=== PATIENT | female | born 1955 | race Caucasian/White ===

== ENCOUNTER 2017-05-17 09:21 | Observation (INO) ==
--- OUTSIDE RECORDS SUMMARY | 2017-05-17 09:37 | External Medical Summary | Continuity of Care Document ---
:1955 Author Organization [facility] Care Team Providers Name Role Phone SMILEY TRAYLOR [facility] LIAISON Unavailable Unavailable Insurance Providers Payer Name Policy Number Subscriber Name Relationship [employer] [id number] Prema Bonilla 16 Self / Same As Patient Advance Directives Directive Response Recorded Date/Time Advanced Directives Yes 05/20/16 10:13am Type Durable Power of Loan Specialist 05/20/16 10:13am Type Living Will 05/20/16 10:13am Other travis bonilla dpoa 05/20/16 10:13am Problems Active Problems Medical Problem Onset Date Status Foot pain Unknown Acute Medications Current Home Medications Medication Dose Units Route Directions Days/Qty Instructions Start Date Losartan Potassium 50 Mg ORAL Daily 90 05/20/16 (Cozaar) 50 Mg Lovastatin 10 Mg 10 Mg ORAL Daily 30 05/20/16 Glyburide 5 Mg 5 Mg ORAL Daily 360 05/20/16 Aspirin 81 Mg 81 Mg ORAL Daily 05/20/16 Omeprazole 20 Mg 20 Mg ORAL Daily 90 05/20/16 Metoprolol Succinate 50 50 Mg ORAL Daily 90 05/20/16 Mg [place]-3 Fatty Acids 300 300 Mg ORAL Daily 05/20/16 Mg Cholecalciferol 1,000 Unit ORAL Daily 05/20/16 (Vitamin D3) 1,000 Unit Social History Social History Problem Response Recorded Date/Time Onset Date Status Occupation or Former Occupation homemaker 05/20/2016 10:16am Query Response Start Date Stop Date Smoking Status Never smoker Hospital Discharge Instructions No hospital discharge instructions. Plan of Care Discharge Date 05/20/16 3:40pm Prescriptions See Medication Section Functional Status No functional status results. Allergies, Adverse Reactions, Alerts Allergen Type Severity Reaction Status Last Updated Codeine Allergy Unknown Active 05/19/16 Immunizations No immunization records. Vital Signs Acute Vital Signs Vital Response Date/Time Temperature (Fahrenheit) 97.0 05/20/2016 2:28pm Pulse 70 bpm 05/20/2016 3:35pm Respirations 16 05/20/2016 3:35pm Height 5 ft 6 in Weight 238 lb Body Mass Index 38.0 kg/m^2 Results Laboratory Results Test Name Result Units Flags Reference Collection Result Comments Date/Time Date/Time White Blood 8.78 10^3uL 4.0-11.0 05/20/2016 05/20/2016 Count 10:36am 10:39am Red Blood Count 4.65 10^6uL 4.00-5.00 05/20/2016 05/20/2016 10:36am 10:39am Hemoglobin 13.1 g/dL 12.0-15.5 05/20/2016 05/20/2016 10:36am 10:39am Hematocrit 38.00 % 35.00-45.00 05/20/2016 05/20/2016 10:36am 10:39am Mean 82 FL 80-100 05/20/2016 05/20/2016 Corpuscular 10:36am 10:39am Volume Mean 28.2 PG 26.0-34.0 05/20/2016 05/20/2016 Corpuscular 10:36am 10:39am Hemoglobin Mean 34.5 g/dL 31.0-37.0 05/20/2016 05/20/2016 Corpuscular 10:36am 10:39am Hemoglobin Concent Red Cell 13.0 % 11.8-15.6 05/20/2016 05/20/2016 Distribution 10:36am 10:39am Width Platelet Count 218 10^3uL 150-450 05/20/2016 05/20/2016 10:36am 10:39am Mean Platelet 9.6 FL H 6.0-9.5 05/20/2016 05/20/2016 Volume 10:36am 10:39am Volume Urine <10mL 05/20/2016 05/20/2016 Centrifuged Unspun 10:36am 10:54am Urine RANDOM 05/20/2016 05/20/2016 Collection Type VOIDED 10:36am 10:54am Urine Color Yellow 05/20/2016 05/20/2016 10:36am 10:53am Urine Clarity Clear 05/20/2016 05/20/2016 10:36am 10:53am Urine pH 5.5 5.0 - 8.0 05/20/2016 05/20/2016 10:36am 10:53am Urine Specific >=1.030 1.005-1.030 05/20/2016 05/20/2016 [place] 10:36am 10:53am Urine Protein Negative 05/20/2016 05/20/2016 10:36am 10:53am Urine Glucose 3+ H Negative 05/20/2016 05/20/2016 (UA) 10:36am 10:53am Urine Blood Trace-intac H Negative 05/20/2016 05/20/2016 t 10:36am 10:53am Urine Ketones Trace H Negative 05/20/2016 05/20/2016 10:36am 10:53am Urine Nitrite Negative Negative 05/20/2016 05/20/2016 10:36am 10:53am Urine Bilirubin Negative Negative 05/20/2016 05/20/2016 10:36am 10:53am Urine 0.2 mg/dL 0.2-1.0 05/20/2016 05/20/2016 Urobilinogen 10:36am 10:53am Urine Leukocyte Negative Negative 05/20/2016 05/20/2016 Esterase 10:36am 10:53am Urine RBC 0-2 /HPF 05/20/2016 05/20/2016 10:36am 10:54am Urine 0-2 /HPF 05/20/2016 05/20/2016 Microscopic WBC 10:36am 10:54am Urine Bacteria Rare /HPF Negative 05/20/2016 05/20/2016 10:36am 10:54am Urine Squamous 20-50 /LPF 05/20/2016 05/20/2016 Epithelial 10:36am 10:54am Cells Urine Mucus Rare 05/20/2016 05/20/2016 10:36am 10:54am Procedures No known history of procedures. Encounters Encounter Location Arrival/Admit Date Discharge/Depart Date Attending Provider Departed [place] 05/20/16 9:57am 05/20/16 3:40pm MIHAI BAE [facility] Care
--- OUTSIDE RECORDS SUMMARY | 2017-05-17 09:37 | External Medical Summary | CCD ---
:1955 Author Name MANCILLAALESHA MCCANN Address [address] [place], [place] [id number] Care Team Providers Name Role Phone SMILEY TRAYLOR Attending Physician Unavailable Vital Signs Unknown or Not Available. Allergies Unknown or Not Available. Procedures Unknown or Not Available. History of Immunizations Unknown or Not Available. Problems Unknown or Not Available. Results Unknown or Not Available. Active Medications Unknown or Not Available. Medications Administered During Visit Unknown or Not Available. Encounters Encounter Diagnosis Diagnosis Code Start Date Encounter for screening [id number] 08/16/2016 mammogram for malignant neoplasm of breast Social History Smoking Status Code Start Date End Date Unknown if ever smoked [id number] Patient Decision Aids Unknown or Not Available. Discharge Instructions You were admitted to [facility] on 08/16/2016 09:17 with a principal diagnosis of Encntr screen mammogram for malignant neoplasm of breas You were discharged from [facility] on 08/16/2016 09:17 Should you have any questions prior to discharge, please contact a member of your healthcare team. If you have left the hospital and have any questions, please contact your primary care physician. Chief Complaint and Reason For Visit Chief Complaint Date of Onset MM BILAT SCREEN Function Status Unknown or Not Available. Plan of Care Unknown or Not Available. Referral/Transition of Care Unknown or Not Available.
--- OUTSIDE RECORDS SUMMARY | 2017-05-17 09:37 | External Medical Summary | CCD ---
:1955 Author Name ALESHA MANCILLA Address [address] [place], [place] [id number] Care Team Providers Name Role Phone MIHAI BAE Attending Physician Unavailable Vital Signs Unknown or Not Available. Allergies Unknown or Not Available. Procedures Unknown or Not Available. History of Immunizations Unknown or Not Available. Problems Unknown or Not Available. Results Unknown or Not Available. Active Medications Unknown or Not Available. Medications Administered During Visit Unknown or Not Available. Encounters Encounter Diagnosis Diagnosis Code Start Date Calcaneal spur, right foot [id number] 08/16/2016 Social History Smoking Status Code Start Date End Date Unknown if ever smoked [id number] Patient Decision Aids Unknown or Not Available. Discharge Instructions You were admitted to [facility]; [facility] on 08/16/2016 09:14 with a principal diagnosis of Calcaneal spur, right foot You were discharged from [facility]; [facility] Should you have any questions prior to discharge, please contact a member of your healthcare team. If you have left the hospital and have any questions, please contact your primary care physician. Chief Complaint and Reason For Visit Chief Complaint Date of Onset PT Function Status Unknown or Not Available. Plan of Care Unknown or Not Available. Referral/Transition of Care Unknown or Not Available.
--- OUTSIDE RECORDS SUMMARY | 2017-05-17 09:37 | External Medical Summary | CCD ---
:1955 Author Name ALESHA MANCILLA Address [address] [place], [place] [id number] Care Team Providers Name Role Phone KARTHIKEYAN FROST Attending Physician Unavailable Vital Signs Unknown or Not Available. Allergies Unknown or Not Available. Procedures Unknown or Not Available. History of Immunizations Unknown or Not Available. Problems Unknown or Not Available. Results BASIC METABOLIC - Collect Date/Time: 06/08/2016 16:16 Test Name Code Test Result Test Units Test Ref Range GLUCOSE 177 mg/dL L=70 H=110 BUN 19 mg/dL L=7 H=18 CREATININE 0.91 mg/dL L=0.60 H=1.30 AGE 61 YEARS GFR 62.4 SODIUM 139 mmol/L L=136 H=145 POTASSIUM 3.7 mmol/L L=3.5 H=5.1 CHLORIDE 103 mmol/L L=98 H=107 CO2 28 mmol/L L=21 H=32 CALCIUM 8.9 mg/dL L=8.5 H=10.1 C-REACTIVE PROTEIN - Collect Date/Time: 06/08/2016 16:16 Test Name Code Test Result Test Units Test Ref Range CRP 27 mg/L L=0 H=5 HGB A1C - Collect Date/Time: 06/08/2016 16:16 Test Name Code Test Result Test Units Test Ref Range HGB A1C 11.9 % L=4.5 H=6.2 eAG 295 mg/dL LIPASE - Collect Date/Time: 06/08/2016 16:16 Test Name Code Test Result Test Units Test Ref Range LIPASE 100 U/L L=73 H=393 CBC W/ DIFF - Collect Date/Time: 06/08/2016 16:16 Test Name Code Test Result Test Units Test Ref Range WBC 10.8 x10^3 L=4.8 H=10.8 RBC 4.91 x10^6 L=4.20 H=5.40 HEMOGLOBIN 13.5 g/dL L=12.0 H=16.0 HEMATOCRIT 40.9 % L=37.0 H=47.0 MCV 83 fL L=80 H=100 MCH 27.4 pg L=27.0 H=33.0 MCHC 33.0 g/dL L=33.0 H=37.0 RDW 13.3 % L=11.5 H=14.5 PLATELETS 291 x10^3 L=150 H=450 MPV 7.2 fL L=7.8 H=11.0 NEUTROPHILS 62.8 % L=40.0 H=80.0 LYMPHOCYTES 28.2 % L=20.0 H=45.0 MONOCYTES 5.8 % L=0.0 H=10.0 EOSINOPHILS 2.7 % L=0.0 H=5.0 BASOPHILS 0.5 % L=0.0 H=2.0 REFLEX MAN DIFF NO N/A SED RATE AUTO - Collect Date/Time: 06/08/2016 16:16 Test Name Code Test Result Test Units Test Ref Range SED RATE 22 mm/HR L=0 H=15 UA AUTO W/ MICRO - Collect Date/Time: 06/08/2016 16:20 Test Name Code Test Result Test Units Test Ref Range COLOR Yellow N/A NORMAL: Yellow APPEARANCE SlCloudy N/A NORMAL: Clear GLUCOSE 500 N/A NORMAL: Negative BILIRUBIN Negative N/A NORMAL: Negative KETONE Negative N/A NORMAL: Negative SPEC GRAVITY >=1.030 N/A NORMAL: 1.005-1.030 BLOOD Negative N/A NORMAL: Negative PROTEIN Negative N/A NORMAL: Negative PH 5.5 N/A NORMAL: 5.0-8.0 UROBILINOGEN 0.2 N/A NORMAL: Negative NITRITE Negative N/A NORMAL: Negative LEUKOCYTES Negative N/A NORMAL: Negative MICRO RBC None Seen N/A NORMAL: 0-2 MICRO WBC 0-2 N/A NORMAL: 0-2 BACTERIA 1+ N/A NORMAL: None-Trace EPI CELLS >30 N/A NORMAL: 0-15 MUCUS None Seen N/A NORMAL: None-Small AMORPHOUS None Seen N/A NORMAL: None Seen YEAST None Seen N/A NORMAL: None Seen CRYSTALS None Seen N/A NORMAL: None Seen CAST None Seen N/A NORMAL: None Seen URINE CULTURE? NO N/A Active Medications Unknown or Not Available. Medications Administered During Visit Unknown or Not Available. Encounters Encounter Diagnosis Diagnosis Code Start Date Type 2 diabetes mellitus with E1165 06/08/2016 hyperglycemia Social History Smoking Status Code Start Date End Date Unknown if ever smoked [id number] Patient Decision Aids Unknown or Not Available. Discharge Instructions You were admitted to [facility] on 06/08/2016 16:07 with a principal diagnosis of Type 2 diabetes mellitus with hyperglycemia You had the following tests done: BASIC METABOLIC C-REACTIVE PROTEIN CBC W/ DIFF HGB A1C LIPASE SED RATE AUTO UA AUTO W/ MICRO You were discharged from [facility] on 06/08/2016 16:07 Should you have any questions prior to discharge, please contact a member of your healthcare team. If you have left the hospital and have any questions, please contact your primary care physician. Chief Complaint and Reason For Visit Chief Complaint Date of Onset LAB/XRAY Function Status Unknown or Not Available. Plan of Care Unknown or Not Available. Referral/Transition of Care Unknown or Not Available.
--- OUTSIDE RECORDS SUMMARY | 2017-05-17 09:37 | External Medical Summary | CCD ---
:1955 Author Name KAREEM WEAVER Address [address] [place], [place] [phone] Care Team Providers Name Role Phone DINO RASCON Attending Physician Unavailable Vital Signs Unknown or Not Available. Allergies Unknown or Not Available. Procedures Unknown or Not Available. History of Immunizations Unknown or Not Available. Problems Unknown or Not Available. Results CARDIAC PANEL - Collect Date/Time: 05/29/2015 09:44 Test Name Code Test Result Test Units Test Ref Range CKMB 1.1 ng/mL L=0.0 H=3.6 CPK 61 U/L L=26 H=308 CKMB% 1.8 % L=0.0 H=4.0 TROPONIN I <0.02 COMP METABOLIC - Collect Date/Time: 05/29/2015 09:44 Test Name Code Test Result Test Units Test Ref Range GLUCOSE 343 mg/dL L=70 H=110 BUN 14 mg/dL L=7 H=18 CREATININE 1.00 mg/dL L=0.60 H=1.30 AGE 60 YEARS GFR 59.7 SODIUM 136 mmol/L L=136 H=145 POTASSIUM 4.2 mmol/L L=3.5 H=5.1 CHLORIDE 101 mmol/L L=98 H=107 CO2 26 mmol/L L=21 H=32 CALCIUM 9.3 mg/dL L=8.5 H=10.1 AST 14 U/L L=15 H=37 ALT 24 U/L L=12 H=78 ALKALINE PHOS 106 U/L L=50 H=136 TOTAL PROTEIN 7.3 g/dL L=6.4 H=8.2 ALBUMIN 3.8 g/dL L=3.4 H=5.0 TOTAL BILI 0.80 mg/dL L=0.00 H=1.00 HGB A1C - Collect Date/Time: 05/29/2015 09:44 Test Name Code Test Result Test Units Test Ref Range HGB A1C 11.4 % L=4.5 H=6.2 eAG 280 mg/dL LIPID PANEL - Collect Date/Time: 05/29/2015 09:44 Test Name Code Test Result Test Units Test Ref Range CHOLESTEROL 155 mg/dL L=0 H=200 TRIGLYCERIDES 95 mg/dL L=30 H=150 HDL 50 mg/dL L=50 H=60 LDL, CALC 86 mg/dL L=0 H=100 VLDL 19 mg/dL L=0 H=40 CHOL/HDL RISK 3.1 RATIO L=0.0 H=4.4 PT FASTING: NO N/A MICROALBUMIN/CREATININE RATIO - Collect Date/Time: 05/29/2015 09:55 Test Name Code Test Result Test Units Test Ref Range MICROALBUMIN 2.3 mg/dL L=0.1 H=2.0 CREAT, URINE 96.8 mg/dL MICROALB/CREAT 23.8 ug/mg L=0.0 H=29.9 Active Medications Unknown or Not Available. Medications Administered During Visit Unknown or Not Available. Encounters Unknown or Not Available. Social History Smoking Status Code Start Date End Date Unknown if ever smoked [id number] Patient Decision Aids Unknown or Not Available. Discharge Instructions You were admitted to [facility] on 05/29/2015. You were discharged from [facility] on 05/29/2015. Should you have any questions prior to discharge, please contact a member of your healthcare team. If you have left the hospital and have any questions, please contact your primary care physician. Chief Complaint and Reason For Visit Unknown or Not Available. Function Status Unknown or Not Available. Plan of Care Unknown or Not Available. Referral/Transition of Care Unknown or Not Available.
--- OUTSIDE RECORDS SUMMARY | 2017-05-17 09:37 | External Medical Summary | Continuity of Care Document ---
:1955 Demographics Phone Unavailable Preferred Language Unknown Marital Status Unknown Jehovah'S Witness Affiliation Unknown Race Unknown Ethnic Group Unknown Author Organization [facility] Allergies Medications Problems Procedures Results Encounters ACCT No. Visit Discharge Status Pt. Type Provider Facility Loc./Unit Complaint Date/Time [id number] 09/14/2016 ACT Unknown 1212 08:54:00 [id number] 08/09/2016 ACT Unknown 1003 14:16:00 [id number] 03/29/2016 ACT Unknown 0622 12:53:00 [id number] 11/21/2015 ACT Unknown 0218 09:50:00 [id number] 10/29/2014 ACT Unknown 1223 08:14:00 [id number] 08/16/2014 ACT Unknown 1107 10:09:00 [id number] 08/16/2014 ACT Unknown 1031 10:03:00
--- OUTSIDE RECORDS SUMMARY | 2017-05-17 09:37 | External Medical Summary | CCD ---
:1955 Author Name MANCILLAALESHA MCCANN Address [address] [place], [place] [phone] Care Team Providers Name Role Phone LITO MARLEY Attending Physician Unavailable Vital Signs Unknown or Not Available. Allergies Unknown or Not Available. Procedures Unknown or Not Available. History of Immunizations Unknown or Not Available. Problems Unknown or Not Available. Results COMP METABOLIC - Collect Date/Time: 11/04/2015 16:40 Test Name Code Test Result Test Units Test Ref Range GLUCOSE 318 mg/dL L=70 H=110 BUN 9 mg/dL L=7 H=18 CREATININE 1.00 mg/dL L=0.60 H=1.30 AGE 60 YEARS GFR 59.7 SODIUM 135 mmol/L L=136 H=145 POTASSIUM 3.6 mmol/L L=3.5 H=5.1 CHLORIDE 98 mmol/L L=98 H=107 CO2 27 mmol/L L=21 H=32 CALCIUM 9.4 mg/dL L=8.5 H=10.1 AST 15 U/L L=15 H=37 ALT 35 U/L L=12 H=78 ALKALINE PHOS 136 U/L L=50 H=136 TOTAL PROTEIN 7.4 g/dL L=6.4 H=8.2 ALBUMIN 3.6 g/dL L=3.4 H=5.0 TOTAL BILI 0.70 mg/dL L=0.00 H=1.00 HGB A1C - Collect Date/Time: 11/04/2015 16:40 Test Name Code Test Result Test Units Test Ref Range HGB A1C 10.9 % L=4.5 H=6.2 eAG 266 mg/dL Active Medications Unknown or Not Available. Medications Administered During Visit Unknown or Not Available. Encounters Encounter Diagnosis Diagnosis Code Start Date Type 2 diabetes mellitus with E1165 11/04/2015 hyperglycemia Social History Smoking Status Code Start Date End Date Unknown if ever smoked [id number] Patient Decision Aids Unknown or Not Available. Discharge Instructions You were admitted to [facility] on 11/2015 with a principal diagnosis of Type 2 diabetes mellitus with hyperglycemia. You were discharged from [facility] on 11/04/2015. Should you have any questions prior to [...]
--- OUTSIDE RECORDS SUMMARY | 2017-05-17 09:37 | External Medical Summary | CCD ---
:1955 Author Name MANCILLAALESHA MCCANN Address [address] [place], [place] [address] Care Team Providers Name Role Phone SMILEY TRAYLOR Attending Physician Unavailable Vital Signs Unknown or Not Available. Allergies Unknown or Not Available. Procedures Unknown or Not Available. History of Immunizations Unknown or Not Available. Problems Unknown or Not Available. Results CARDIAC PANEL - Collect Date/Time: 03/11/2016 10:05 Test Name Code Test Result Test Units Test Ref Range CKMB 0.5 ng/mL L=0.0 H=3.6 CPK 57 U/L L=26 H=308 CKMB% 0.9 % L=0.0 H=4.0 TROPONIN I <0.02 ng/mL L=0.00 H=0.05 COMP METABOLIC - Collect Date/Time: 03/11/2016 10:05 Test Name Code Test Result Test Units Test Ref Range GLUCOSE 473 mg/dL L=70 H=110 BUN 10 mg/dL L=7 H=18 CREATININE 1.05 mg/dL L=0.60 H=1.30 AGE 60 YEARS GFR 53.1 SODIUM 135 mmol/L L=136 H=145 POTASSIUM 3.7 mmol/L L=3.5 H=5.1 CHLORIDE 100 mmol/L L=98 H=107 CO2 26 mmol/L L=21 H=32 CALCIUM 8.9 mg/dL L=8.5 H=10.1 AST 14 U/L L=15 H=37 ALT 27 U/L L=12 H=78 ALKALINE PHOS 124 U/L L=50 H=136 TOTAL PROTEIN 7.3 g/dL L=6.4 H=8.2 ALBUMIN 3.4 g/dL L=3.4 H=5.0 TOTAL BILI 0.80 mg/dL L=0.00 H=1.00 HGB A1C - Collect Date/Time: 03/11/2016 10:05 Test Name Code Test Result Test Units Test Ref Range HGB A1C 12.3 % L=4.5 H=6.2 eAG 306 mg/dL CBC W/ DIFF - Collect Date/Time: 03/11/2016 10:05 Test Name Code Test Result Test Units Test Ref Range WBC 8.5 x10^3 L=4.8 H=10.8 RBC 4.88 x10^6 L=4.20 H=5.40 HEMOGLOBIN 13.4 g/dL L=12.0 H=16.0 HEMATOCRIT 40.9 % L=37.0 H=47.0 MCV 84 fL L=80 H=100 MCH 27.5 pg L=27.0 H=33.0 MCHC 32.8 g/dL L=33.0 H=37.0 RDW 13.3 % L=11.5 H=14.5 PLATELETS 255 x10^3 L=150 H=450 MPV 7.3 fL L=7.8 H=11.0 NEUTROPHILS 64.9 % L=40.0 H=80.0 LYMPHOCYTES 27.2 % L=20.0 H=45.0 MONOCYTES 5.3 % L=0.0 H=10.0 EOSINOPHILS 1.8 % L=0.0 H=5.0 BASOPHILS 0.8 % L=0.0 H=2.0 REFLEX MAN DIFF NO N/A H. PYLORI IGG, RAPID - Collect Date/Time: 03/11/2016 10:05 Test Name Code Test Result Test Units Test Ref Range H. PYLORI IGG, NEGATIVE N/A NORMAL: NEGATIVE RAPID UA AUTO W/ MICRO - Collect Date/Time: 03/11/2016 10:05 Test Name Code Test Result Test Units Test Ref Range COLOR Yellow N/A NORMAL: Yellow APPEARANCE Clear N/A NORMAL: Clear GLUCOSE 500 N/A NORMAL: Negative BILIRUBIN Negative N/A NORMAL: Negative KETONE Negative N/A NORMAL: Negative SPEC GRAVITY 1.010 N/A NORMAL: 1.005-1.030 BLOOD Trace-in N/A NORMAL: Negative PROTEIN Negative N/A NORMAL: Negative PH 6.0 N/A NORMAL: 5.0-8.0 UROBILINOGEN 0.2 N/A NORMAL: Negative NITRITE Negative N/A NORMAL: Negative LEUKOCYTES Negative N/A NORMAL: Negative MICRO RBC 0-2 N/A NORMAL: 0-2 MICRO WBC None Seen N/A NORMAL: 0-2 BACTERIA Trace N/A NORMAL: None-Trace EPI CELLS 5-10 N/A NORMAL: 0-15 MUCUS None Seen N/A NORMAL: None-Small AMORPHOUS None Seen N/A NORMAL: None Seen YEAST None Seen N/A NORMAL: None Seen CRYSTALS None Seen N/A NORMAL: None Seen CAST None Seen N/A NORMAL: None Seen URINE CULTURE? NO N/A Active Medications Unknown or Not Available. Medications Administered During Visit Unknown or Not Available. Encounters Encounter Diagnosis Diagnosis Code Start Date Chest pain, unspecified R079 03/11/2016 Social History Smoking Status Code Start Date End Date Unknown if ever smoked [id number] Patient Decision Aids Unknown or Not Available. Discharge Instructions You were admitted to [facility] on 03/11/2016 09:43 with a principal diagnosis of Chest pain, unspecified You had the following tests done: CARDIAC PANEL CBC W/ DIFF COMP METABOLIC H. PYLORI IGG, RAPID HGB A1C UA AUTO W/ MICRO You were discharged from [facility] on 03/11/2016 09:43 Should you have any questions prior to discharge, please contact a member of your healthcare team. If you have left the hospital and have any questions, please contact your primary care physician. Chief Complaint and Reason For Visit Chief Complaint Date of Onset LAB Function Status Unknown or Not Available. Plan of Care Unknown or Not Available. Referral/Transition of Care Unknown or Not Available.
[2017-05-17 10:12] VITALS: BMI 37.9
[2017-05-17] MEDS ORDERED: SALINE FLUSH 10ml SYRINGE IVF PRN (10:17)
[2017-05-17] MEDS ORDERED: NS 1,000 ML IV SCH (10:30)
[2017-05-17] MEDS ORDERED: HEPARIN 1,000unit/ml INJECTION 10ml ONE (16:20)
[2017-05-17] MEDS ORDERED: Verapamil 5 MG/2 ML VIAL ONE (16:20)
[2017-05-17] MEDS ORDERED: FentaNYL 100 MCG/2 ML INJECTION ONE (16:20)
[2017-05-17] MEDS ORDERED: NITROGLYCERIN 50MG INJECTION IV ONE (16:20)
[2017-05-17] MEDS ORDERED: MIDAZOLAM 2mg/2ml INJECTION ONE (16:20)
[2017-05-17] MEDS ORDERED: LIDOCAINE 1% (10mg/ml) 30ml SDV INJ ONE (16:21)
[2017-05-17] MEDS ORDERED: HEPARIN 1,000 UNITS/500 ML PREMIX (*CVL ONLY*) IV ONE (16:21)
[2017-05-17] MEDS ORDERED: MAG-AL + SIM ORAL LIQUID 30ml PO PRN (17:09)
[2017-05-17] MEDS ORDERED: BISACODYL 10 MG SUPPOSITORY RECTALLY PRN (17:09)
[2017-05-17] MEDS ORDERED: Bisacodyl EC TAB 5 MG TABLET PO PRN (17:09)
[2017-05-17] MEDS ORDERED: ATROPINE 1 MG/ML INJECTION IVP PRN (17:09)
[2017-05-17] MEDS ORDERED: ONDANSETRON 4 MG/2 ML INJECTION IVP PRN (17:09)
[2017-05-17] MEDS ORDERED: METOCLOPRAMIDE 10mg/2ml INJECTION IVP PRN (17:09)
[2017-05-17] MEDS ORDERED: LORazepam 0.5 MG TABLET PO PRN (17:09)
[2017-05-17] MEDS ORDERED: NITROGLYCERIN 0.4 MG SUBLINGUAL TABLET SL PRN (17:09)
[2017-05-17] MEDS ORDERED: PROMETHAZINE 25 MG INJECTION IVP PRN (17:09)
[2017-05-17] MEDS ORDERED: MORPHINE SULFATE 4 MG SYRINGE IVP PRN ×2 (17:09)
[2017-05-17] MEDS ORDERED: HYDROCODONE/APAP 5mg/325mg TABLET PO PRN (17:09)
[2017-05-17] MEDS ORDERED: ACETAMINOPHEN 325 MG TABLET PO PRN (17:09)
--- NOTE | 2017-05-17 17:39 | Discharge Instructions ---
<RosibelSol - Last Filed: 05/17/17 17:35> Discharge Plan - Med Rec/Dispo Referrals/Follow Up: Lul Oh MD [Physician] - Additional Instructions: Please follow up with Dr. Oh in 2-4 weeks. Your name and number were given to the office staff to call you with a follow up date and time. If they do not contact you by Tuesday please call [phone]. Please hold your Metformin until Tuesday morning. Prescriptions: Continue Liraglutide [Victoza 3-Kris] 1.8 mg SQ HS Insulin Glargine,Hum.rec.anlog [Lantus Solostar] 20 unit SQ HS Multivitamin [One-A-Day Essential] 1 each PO HS Omeprazole [Prilosec] 20 mg PO HS Aspirin 1 tab PO DAILY Metformin [Glucophage] 500 mg PO DAILY Empagliflozin [Jardiance] 25 mg PO DAILY Losartan [Cozaar] 50 mg PO DAILY Lovastatin 10 mg PO DAILY Metformin [Glucophage] 2 tab PO HS Insulin Glargine,Hum.rec.anlog [Lantus Solostar] 20 unit SQ DAILY Metoprolol Succinate (Xl) 50 mg PO DAILY - Disposition 01 Discharged Home, Self-Care <Lul Oh - Last Filed: 05/19/17 12:55> Discharge Plan - Med Rec/Dispo - Attestation Attestation Narrative: 05/19/17 12:55 Recommendation After examining the patient I agree with the above assessment. I am involved in the formulation of the patient's plan of care.
--- NOTE | 2017-05-17 17:50 | Cardiac Catheterization Report ---
DATE OF PROCEDURE May 17, 2017 The patient is a pleasant 62-year-old lady with chest pressure, tightness and heaviness suggestive of angina and multiple risk factors for coronary artery disease. Despite negative stress tests she continued to have symptoms of angina and was referred for further evaluation by cardiac catheterization and possible intervention. Informed consent was obtained after explaining the procedure and the potential risks to the patient who agreed to proceed with the procedure. PROCEDURE 1. Left heart catheterization. 2. Coronary angiography. 3. Left ventriculography. TECHNIQUE She was prepped and draped in the usual sterile techniques. Conscious sedation was performed using Versed and fentanyl. 1% lidocaine was used for local anesthesia. Using modified Seldinger technique, arterial access was obtained into the right radial artery with placement of a 6-Armenian arterial sheath. LEFT VENTRICULOGRAPHY Left ventriculography in single-plane SUERO shallow projection showed normal LV systolic function with ejection fraction of about 60% with no mitral regurgitation or gradient across the aortic valve. LVEDP was about 6. CORONARY ANGIOGRAPHY Left main, left anterior descending and diagonals, left circumflex and marginals , and right coronary artery all had minor irregularities with no significant lesions. The patient tolerated the procedure well with no complications. IMPRESSION 1. Normal LV systolic function with ejection fraction of about 60%. 2. Minor coronary irregularities with no hemodynamically significant lesions. PLAN Medical management. NINA
[2017-05-17 18:17] VITALS: TEMP 97.8
[2017-05-17 18:22] VITALS: BP 155/83; PULSE 86; RESP 14; O2SAT 96
== END 2017-05-17 20:30 | disposition home or self-care (01) ==
LOC: SRG
PROVIDERS: ADMIT Internal Medicine Cardiovascular Disease; ATTEND Internal Medicine Cardiovascular Disease